=== PATIENT | male | born 1985 | race Caucasian/White ===

== ENCOUNTER 2020-03-12 03:41 | Emergency (ER) | payer MEDICAID ==
[~2020-03-12] VITALS: Ht 170.2 cm; Wt 77.0 kg
[2020-03-12 04:20] VITALS: BP 131/79
[2020-03-12 04:25] LABS: HEMATOCRIT. 41.8 % (42.0-52.0); HEMOGLOBIN. 14.3 g/dL (14.0-18.0); MEAN CORPUSCULAR HEMOGLOBIN 29.2 pg (28.0-32.0); MEAN CORPUSCULAR VOLUME 85.2 fL (80.0-94.0); MEAN PLATELET VOLUME 8.2 fl (7.4-10.4); PLATELET 253 x1000/uL (130-400); RED CELL DISTRIBUTION WIDTH 13.8 % (11.6-14.6)
[2020-03-12 04:45] LABS: CHLORIDE 107 mEq/L (98-107)
[2020-03-12] MEDS: POTASSIUM CHLORIDE 20MEQ TABLET SR PO NR ×2 (04:45→05:52)
[2020-03-12 04:46] LABS: PLATELET ESTIMATE NORMAL
== END 2020-03-12 07:51 | disposition home or self-care (01) ==
LOC: ER 03:41
DX: R00.2 Palpitations (principal); I10 Essential (primary) hypertension; Z98.890 Other specified postprocedural states
CPT/HCPCS: 36415; 71045; 80053; 83880; 84443; 84484; 85025; 85379; 93005; 99285